=== PATIENT | male | born 1935 | race Hispanic/Latino ===

== ENCOUNTER 2017-08-16 09:25 | Observation (INO) | payer MEDICARE ==
[2017-08-16 09:46] LABS: #Eosinphils 0.1 thou/uL (0.0-0.7); #Lymphocytes 2.2 thou/uL (1.20-3.40); #Monocytes 0.5 thou/uL (0.11-0.59); %Basophils 0.6 % (0.0-1.0); %Eosinophils 1.4 % (0.0-10.0); %Lymphocytes 37.8 % (21.0-51.0); %Neutrophils 52.1 % (42.0-75.0); Hemoglobin 14.6 g/dL (14.0-18.0); Mean Corpuscular Hemoglobin 31.3 pg (27.0-31.0); Mean Corpuscular Volume 94.8 fl (80.0-94.0); Mean Platelet Volume 7.6 fL (7.4-10.4); Platelet Count 176 thou/uL (130-400); RBC Distribution Width 12.5 % (11.5-14.5); Red Blood Cell (RBC) Count 4.65 mill/uL (4.70-6.10); White Blood Cell (WBC) Count 5.8 thou/uL (4.8-10.8)
[2017-08-16] MEDS ORDERED: Pantoprazole 40 MG VIAL ONE (09:54)
[2017-08-16] MEDS ORDERED: Nitroglycerin 0.4 MG TAB (25 Tab Bottle) ONE (09:54)
[2017-08-16 10:13] LABS: ALT (SGPT) 27 U/L (8-55); AST (SGOT) 31 U/L (5-34); Albumin 4.2 g/dL (3.4-4.8); Alkaline Phosphatase 58 U/L (40-150); Anion Gap 10 mmol/L (10-20); BUN (Urea Nitrogen) 13 mg/dL (8.4-25.7); Bilirubin, Total 0.8 mg/dL (0.2-1.2); Calc. Creatinine Clearance 0 mL/min (70-130); Calcium 9.3 mg/dL (7.8-10.44); Carbon Dioxide 27 mmol/L (23-31); Chloride 101 mmol/L (98-107); Estimated GFR-MDRD 77; Globulin 2.9 g/dL (2.4-3.5); Glucose 97 mg/dL (83-110); Lipase 13 U/L (8-78); Potassium 4.4 mmol/L (3.5-5.1); Protein, Total 7.1 g/dL (5.8-8.1); Sodium 134 mmol/L (136-145)
[2017-08-16 10:18] LABS: Magnesium 2.3 mg/dL (1.6-2.6)
--- NOTE | 2017-08-16 10:19 | RAD ---
PORTABLE CHEST ONE VIEW: Date: 08-16-17 Time: 9:37 a.m. History: Chest pain. FINDINGS: Comparison made with exam of 05-04-17. The heart size is normal. The lungs are expanded without focal areas of consolidation, pneumothorax, or pleural effusions. The aorta is tortuous. There are degenerative changes in the acromioclavicular and shoulder joints. IMPRESSION: No radiographic evidence of acute cardiopulmonary process. POS: [facility]
[2017-08-16 10:25] LABS: Troponin I Less than 0.010 ng/mL (< 0.028)
[2017-08-16 10:33] LABS: CKMB 10.7 ng/mL (0-6.6)
[2017-08-16] MEDS ORDERED: Zolpidem Tartrate 5 MG TAB PO PRN (12:12)
[2017-08-16] MEDS ORDERED: Senokot 8.6 MG TAB PO PRN (12:12)
[2017-08-16] MEDS ORDERED: hydrALAZINE 20 MG/ML VIAL SLOW IVP PRN (12:12)
[2017-08-16] MEDS ORDERED: Sodium Chloride 0.65% Nasal 44 ML BOT EA NARE PRN (12:12)
[2017-08-16] MEDS ORDERED: Acetaminophen 325 MG TAB PO PRN (12:12)
[2017-08-16] MEDS ORDERED: Ondansetron ODT 4 MG TAB PO PRN (12:12)
[2017-08-16] MEDS ORDERED: Milk Of Magnesia 30 ML UDCUP PO PRN (12:12)
[2017-08-16] MEDS ORDERED: HYDROcodone/Acetaminophen 5/325 mg Tablet PO PRN (12:12)
[2017-08-16] MEDS ORDERED: Artificial Tear Sol 15 ML BOT EA EYE PRN (12:12)
[2017-08-16] MEDS ORDERED: Loratadine 10 MG TAB PO PRN (12:12)
[2017-08-16] MEDS ORDERED: Calcium Carbonate 500 MG ChewTAB PO PRN (12:12)
[2017-08-16] MEDS ORDERED: Mag-Al 1200 mg/1200 mg/30 ML UDCUP PO PRN (12:12)
[2017-08-16] MEDS ORDERED: Nitroglycerin 0.4 MG TAB (25 Tab Bottle) SL PRN (12:12)
[2017-08-16] MEDS ORDERED: Eucerin (Mineral Oil/Petrolatum,White) 30 gm Jar TOP PRN (12:12)
[2017-08-16] MEDS ORDERED: Diabetic Tussin 200 MG/10 ML UDCUP PO PRN (12:12)
[2017-08-16] MEDS ORDERED: Loperamide HCl 2 MG CAP PO PRN (12:12)
[2017-08-16] MEDS ORDERED: Chloraseptic Spray 180 ml Bottle PO PRN (12:12)
--- NOTE | 2017-08-16 12:18 | HP ---
PRIMARY CARE PHYSICIAN: Aubree Navas M.D. CHIEF COMPLAINT: Sent by primary care physician for chest discomfort. HISTORY OF PRESENT ILLNESS: An 81-year-old male who has history of hypertension and hypothy roidism who came to emergency room for evaluation of chest discomfort. The patient had regular [facility] visit today and patient was complaining of chest tightness and that is why primary care physician did EKG. Primary care physician noticed some abnormal finding and that is why he was directed to go to the emergency room. Patient has one week history of chest tightness which he normally feels in the morning, dull aching i n nature, associated with some burping and after burping he feels better. Whenever he does his yardw ork in the morning, after that his chest pain subsides. He never had associated nausea, vomiting, bu t he feels burping. He denies any dizziness, palpitation. He denies any relation of chest discomfor t with respiration or activity. The patient thinks that he has acid reflux problem. He had seen Dr. Sun in the past, but he never had any fall off to do any endoscopy. 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 The patient is normally able to do all a ctivities without any exertional chest pain, palpitation, dizziness or syncope. He denies any orthop leo, PND or leg swelling. He denies any lower extremity edema or calf tenderness. He denies any NSA ID abuse. He denies any constipation, diarrhea, melena or hematochezia. He denies any UTI symptoms. When he presented to emergency room, he was hypertensive. His blood pressure was 215/86. His CK-MB is slightly elevated, but troponin is negative. Patient primary care physician did EKG which showed some nonspecific ST-T changes in anterior leads. Here in our emergency room, EKG was done which did not show any new finding. REVIEW OF SYSTEMS: The following complete review of systems was negative, unless otherwise mentioned in the HPI or below: Constitutional: Weight loss or gain, ability to conduct usual activities. Skin: Rash, itching. Eyes: Double vision, pain. ENT/Mouth: Nose bleeding, neck stiffness, pain, tenderness. Cardiovascular: Palpitations, dyspnea on exertion, orthopnea. Respiratory: Shortness of breath, wheezing, cough, hemoptysis, fever or night sweats. Gastrointestinal: Poor appetite, abdominal pain, heartburn, nausea, vomiting, constipation, or diarr hea. Genitourinary: Urgency, frequency, dysuria, nocturia. Musculoskeletal: Pain, swelling. Neurologic/Psychiatric: Anxiety, depression. Allergy/Immunologic: Skin rash, bleeding tendency. Please see my HPI for pertinent positive and negative. All other review of systems reviewed and nega tive except as mentioned in the HPI. ALLERGIES: The patient is allergic to IODINATED CONTRAST MEDIA. CURRENT HOME MEDICATIONS: Benazepril 40 mg p.o. daily, Toprol-XL 50 mg p.o. daily, Synthroid 50 mcg p.o. daily, aspirin 81 mg p.o. daily, and doxazosin 8 mg p.o. daily. PAST MEDICAL HISTORY: Hypertension and hypothyroidism. PAST SURGICAL HISTORY: Deviated nasal septum, cholecystectomy, spine surgery for lumbar stenosis. PAST PSYCHIATRIC HISTORY: Reviewed and negative. SOCIAL HISTORY: Patient is and lives at home with his . No history of tobacco, alcohol or illicit drug abuse. FAMILY HISTORY: No strong family history of premature coronary artery disease, stroke or cancer. EMERGENCY ROOM COURSE: Patient is given nitroglycerin 0.4 mg sublingual, Protonix 40 mg IV push and aspirin 162 mg. PHYSICAL EXAMINATION: VITAL SIGNS: On arrival, blood pressure 215/86, pulse 61, respiratory rate 18, temperature 97.7, sat uration 97% on room air, and weight 86.2 kilograms. GENERAL: Patient is currently alert, awake, no obvious acute distress. HEAD: Normocephalic, atraumatic. EYES: Pupils round, reactive to light. Extraocular muscle intact. ENT: Oropharynx within normal limits. Moist mucous membranes. No oral lesion, no pharyngeal erythe ma, no exudate. NECK: Supple, no JVD, no thyromegaly, no carotid bruit, no jugular venous distention. LUNGS: Clear to auscultation without any rhonchi or rales. CARDIAC: S1 and S2 regular. No murmur, no gallop, no rub. ABDOMEN: Soft, bowel sounds present, nontender, nondistended. No organomegaly, no mass, no suprapub ic tenderness. BACK: Examination unremarkable, no CVA tenderness. EXTREMITIES: Upper extremity passive movements of all joints are normal. Lower extremities: No robert ma, no calf tenderness. Good distal pulsation. SKIN: No skin rash. HEMATOLOGICAL SYSTEM: No lymphadenopathy. PSYCHIATRIC: Normal affect. NEUROLOGIC: The patient is alert and oriented x3. Cranial nerves II-XII intact. Motor and sensatio n within normal limits. No focal neurological deficit noted. IMAGING DATA AND SIGNIFICANT LABORATORY DATA: 1. EKG showing sinus bradycardia, nonspecific ST-T changes. 2. Chest x-ray based on my review, no acute cardiopulmonary process. 3. CBC: WBC 5.8, hemoglobin 14.6, MCV 94.8, platelet 176. 4. BMP: Sodium 134, potassium 4.4, chloride 101, carbon dioxide 27, anion gap 10, BUN 13, creatinin e 0.94, glucose 97, calcium 9.3, and magnesium 2.3. 5. LFT: AST 31, ALT 27, alkaline phosphatase 58, albumin 4.2, lipase 13. 6. Chest x-ray based on my review, no acute cardiopulmonary process. ASSESSMENT AND PLAN/IMPRESSION: 1. Chest discomfort. The patient has substernal chest discomfort and that gets better with burping and after daily activities, patient does have history of gastritis. I am suspecting patient's curren t presentation most likely related with gastroesophageal reflux disease. The patient will need outpa tient gastroenterology followup for upper endoscopic evaluation. Patient did not eat anything this m orning including he did not have any coffee. We will try to do stress test today for diagnostic reas on to rule out underlying cardiac region. He has elevated CK-MB and that is why we will do 3 sets of cardiac enzyme and meanwhile we will continue with aspirin 325 mg p.o. daily and nitropatch q.8 hour ly. The patient's blood pressure was very high and that is why we will monitor patient's blood press ure while in hospital. If stress test can be done today and if it is normal, then it is possible siria t we will consider discharging him home later on today. Otherwise, if stress test will be done tomor row, then if negative tomorrow, we will consider discharge. We will check lipid profile for risk str atification. 2. Gastroesophageal reflux disease. We will add Protonix 40 mg p.o. daily on his regimen. The ro ent is advised to avoid nonsteroidal anti-inflammatory drugs. 3. Hypertension with hypertensive urgency on admission. Currently blood pressure is better controll ed after emergency room treatment. We will continue benazepril 40 mg p.o. daily and doxazosin 8 mg p .o. daily. 4. Sinus bradycardia, likely related with metoprolol succinate because we are planning to do stress test and currently patient has relatively bradycardia that is why we will hold on that medication, bu t that medication can be continued and the patient needs to follow up with primary care physician for adjustment of medication if needed. Currently, patient is asymptomatic with bradycardia. 5. Hypothyroidism. Continue Synthroid 50 mcg p.o. daily. 6. Obesity. Dietary education given and weight loss education given. Healthy lifestyle measures di scussed with the patient. 7. Deep venous thrombosis prophylaxis not needed because we are expecting discharge in 24 hours. 8. Gastrointestinal prophylaxis. Patient is already on Protonix therapy. CODE STATUS: Patient is FULL CODE. The patient's is surrogate decision maker. DISPOSITION AND PLAN: Based on clinical course, possibly today if stress test is done today, otherwi se tomorrow after negative stress test. Plan of care discussed with the in detail.
[2017-08-16 12:27] VITALS: BMI 29.2
[2017-08-16 13:36] LABS: Troponin I Less than 0.010 ng/mL (< 0.028)
[2017-08-16] MEDS ORDERED: Doxazosin Mesylate 4 MG TAB PO SCH (14:00)
[2017-08-16] MEDS: Nitroglycerin 2% Ointment 1 INCH/1 GM Packet TOP SCH ×2 (15:53→21:26)
[2017-08-16 16:49] LABS: Troponin I Less than 0.010 ng/mL (< 0.028)
[2017-08-16] MEDS: hydrALAZINE 25 MG TAB PO SCH (21:26)
[2017-08-17 05:32] LABS: Cardiac Risk 3.5 (Less than 4.5)
[2017-08-17] MEDS: Nitroglycerin 2% Ointment 1 INCH/1 GM Packet TOP SCH (05:32)
[2017-08-17] MEDS ORDERED: Levothyroxine Sodium 50 MCG TAB PO SCH (06:00)
[2017-08-17] MEDS: hydrALAZINE 25 MG TAB PO SCH (08:22)
[2017-08-17] MEDS ORDERED: Aspirin 325 MG TAB PO SCH (09:00)
[2017-08-17] MEDS ORDERED: Doxazosin Mesylate 4 MG TAB PO SCH (09:00)
[2017-08-17 12:29] VITALS: BP 143/69; TEMP 98
--- NOTE | 2017-08-17 14:16 | NM ---
RADIONUCLIDE STRESS REST MYOCARDIAL PERFUSION SCAN WITH CT ATTENUATION CORRECTION AND SPECT IMAGING: History: Chest pain. FINDINGS: Adenosine protocol was used. There is heterogeneous uptake of radiotracer throughout the left ventric ular myocardium with diaphragmatic attenuation. No focal perfusion defect or reversibility. QGS deja sis of gated SPECT images shows no focal wall motion abnormalities. Left ventricular ejection fractio n is calculated at 73%. IMPRESSION: 1. Normal myocardial perfusion scan. Normal LVEF. POS: [facility]
--- NOTE | 2017-08-17 14:27 | DIS ---
DATE OF ADMISSION: 08/16/2017 DATE OF DISCHARGE: 08/17/2017 DISCHARGE DIAGNOSES: 1. Noncardiac chest pain. 2. Elevated CK-MB with normal troponins. 3. Hypertensive urgency, resolved. 4. Hypothyroidism. 5. Gastroesophageal reflux disease. 6. Chronic bradycardia. CONSULTATIONS: None. PROCEDURES: Nuclear stress test, 08/16/2017 and 08/17/2017, was negative for reversible ischemia. HISTORY AND PHYSICAL: Mr. Win is an 81-year-old male with the above history w ho presented in the emergency department for evaluation of chest pain. Chest pain was described as a chest tightness and saw a PCP who did an EKG that was reportedly abnormal, so was told to go to [facility] department. Since being here, the patient has normal troponin, but a slightly elevated CK-MB on presentation with negative EKG; however, the blood pressure noted to be 215/86. He was subsequently admitted. HOSPITAL COURSE: The patient was seen and examined by Dr. Abel. He was placed on observation and serial cardiac biomarkers were ordered. He was placed on cardioprotective medication. Overnight, he had no further chest pain. Resting stress test was done on 08/16/2017, active nuclear stress test done on 08/17/2017. It was negative for reducible ischemia, no evidence of EKG changes. The patient was discharged with outpatient followup. The patient was seen and examined on day of . Discharge plan and disposition was discussed with the patient [id number] at the bedside. DISCHARGE MEDICATIONS: 1. Albuterol sulfate MDI 1 puff daily as needed. 2. Amlodipine 2.5 mg p.o. daily. 3. Aspirin 81 mg daily. 4. Benazepril 40 mg p.o. b.i.d. 5. Doxazosin 8 mg p.o. daily. 5. Levothyroxine 150 mcg daily. 6. Metoprolol succinate 25 mg p.o. daily. 7. Vitamin A and D3 and cod liver oil 1 capsule daily. FOLLOWUP APPOINTMENTS: Primary care physician, listed as Dr. Aubree Navas, within a week. DISCHARGE DIET: Heart healthy recommended. DISCHARGE ACTIVITY: Per cardiopulmonary limits. DISCHARGE CONDITION: Stable. DISPOSITION: Will be discharged home via private vehicle.
[2017-08-17] MEDS ORDERED: ADENOSINE 60 MG/20 ML VIAL ONE (14:41)
== END 2017-08-17 14:31 | disposition home or self-care (01) ==
LOC: ERS 09:25 → 2SW 12:10
PROVIDERS: ADMIT Internal Medicine; ATTEND Internal Medicine
DX: R07.89 Other chest pain (principal); R74.8 Abnormal levels of other serum enzymes; I16.0 Hypertensive urgency; I10 Essential (primary) hypertension; E03.9 Hypothyroidism, unspecified; K21.9 Gastro-esophageal reflux disease without esophagitis; R00.1 Bradycardia, unspecified; E66.9 Obesity, unspecified; Z68.29 Body mass index [BMI] 29.0-29.9, adult; Z91.041 Radiographic dye allergy status; Z79.82 Long term (current) use of aspirin; Z79.899 Other long term (current) drug therapy
CPT/HCPCS: 71045; 78452; 80053; 80061; 82553; 83690; 83735; 83880; 84443; 84484 ×2; 85025; 93005; 93017; 96374; 96375; 99285; A9500; G0378; 36415; A4216; C9113; J0153; J0360